=== PATIENT | male | born 1960 | race African-American/Black ===

== ENCOUNTER 2016-07-13 20:15 | Emergency (ER) | payer BC ==
[~2016-07-13] VITALS: Ht 180.3 cm; Wt 81.8 kg
[2016-07-13] MEDS ORDERED: LIDOCAINE 1% (XYLOCAINE) 20 ML VIAL INJ ONE (20:40)
[2016-07-13] MEDS ORDERED: TETANUS, DIPTHERIA, PERTUSSIS (ADACELL) VACCINE 0.5 ML VIAL IM ONE (20:40)
[2016-07-13] MEDS ORDERED: BACITRACIN OINTMENT 0.9 GM PACKET TOP ONE (20:40)
[2016-07-13] MEDS ORDERED: ED- HYDROcodone/ACETAMINOPHEN 5MG/325MG (NORCO) 6 TABLETS/BTL PO ONE (22:00)
[2016-07-13 22:16] VITALS: BP 170/77
== END 2016-07-13 22:16 | disposition home or self-care (01) ==
LOC: ED 20:17
DX: S91.111A Laceration without foreign body of right great toe without damage to nail, initial encounter (principal); S92.421B Displaced fracture of distal phalanx of right great toe, initial encounter for open fracture; W20.8XXA Other cause of strike by thrown, projected or falling object, initial encounter; Y93.9 Activity, unspecified; Y92.009 Unspecified place in unspecified non-institutional (private) residence as the place of occurrence of the external cause
CPT/HCPCS: 12002; 90471; 90715; 99283

== ENCOUNTER → 2016-07-26 | Outpatient (CLI) | payer BC ==
[~2016-07-26] VITALS: Ht 180.3 cm; Wt 83.9 kg
[2016-07-26 22:17] VITALS: BP 147/77
--- NOTE | 2016-07-26 22:18 | NUR ---
Removed sutures from right big toe without incident. Pt handled procedure well.
== END ==
LOC: EUOP 21:12
PROVIDERS: ATTEND Emergency Medicine
DX: S91.111D Laceration without foreign body of right great toe without damage to nail, subsequent encounter (principal); W20.8XXD Other cause of strike by thrown, projected or falling object, subsequent encounter

== ENCOUNTER → 2016-08-02 | Outpatient (REF) | payer BC ==
[~2016-08-02] MED LIST: HYDR-3702 PO
[2016-08-02 16:12] LABS: BASOPHILS % (AUTO) 0 % (0-2); EOSINOPHILS # (AUTO) 0.1 10^3uL; EOSINOPHILS % (AUTO) 3 % (0-4); LYMPHOCYTES # (AUTO) 1.1 X10^3; MEAN CORPUSCULAR HEMOGLOBIN 27.8 PG (26.0-34.0); MEAN CORPUSCULAR HGB CONC 34.5 g/dL (31.0-37.0); MEAN CORPUSCULAR VOLUME 81 FL (80-100); MEAN PLATELET VOLUME 13.3 FL (6.0-9.5); MONOCYTES # (AUTO) 0.6 X10^3; MONOCYTES % (AUTO) 13 % (3-11); NEUTROPHILS # (AUTO) 2.7 X10^3; NEUTROPHILS % (AUTO) 59 % (51-67); PLATELET COUNT 173 10^3uL (150-450)
[2016-08-02 16:18] LABS: BILIRUBIN,URINE Negative (Negative); CLARITY,URINE Clear; COLOR,URINE Yellow; GLUCOSE, URINE (UA) Negative (Negative); LEUKOCYTE ESTERASE ,URINE Negative (Negative); PH,URINE 5.5 (5.0 - 8.0); UROBILINOGEN,URINE 0.2 mg/dL (0.2-1.0)
[2016-08-02 16:20] LABS: ALBUMIN 4.5 g/dL (3.4-5.0); ANION GAP 18.5 MEQ/L (3-15); CALCULATED IONIZED CALCIUM 4.3 mg/dL (3.8-4.6); TOTAL PROTEIN 7.5 g/dL (6.4-8.5)
== END ==
LOC: LAB 16:05
PROVIDERS: ATTEND Family Medicine
DX: Z00.00 Encounter for general adult medical examination without abnormal findings (principal); Z12.5 Encounter for screening for malignant neoplasm of prostate
CPT/HCPCS: 80053; 80061; 81003; 84153; 84443; 85025